=== PATIENT | female | born 1980 | race Caucasian/White ===

== ENCOUNTER 2020-07-26 10:10 | Inpatient (IN) | payer BC ==
[~2020-07-26] VITALS: Ht 167.6 cm; Wt 74.4 kg
[2020-07-26 10:29] VITALS: BP 112/67
[2020-07-26 10:58] LABS: ABSOLUTE NEUTROPHILS 9.9 thou/uL (1.4-8.2); BASOPHILS 0.4 % (0.0-2.0); EOSINOPHILS 0.5 % (0.0-3.0); HEMATOCRIT 38.9 % (37.0-47.0); LYMPHOCYTES 13.1 % (24.0-44.0); MCH 30.1 pg (26.0-34.0); MCHC 33.5 g/dL (28.0-37.0); MONOCYTES 6.2 % (1.0-8.0); PLATELET COUNT 317 thou/uL (150-400); POLYS 79.8 % (36.0-66.0); RBC 4.32 mil/uL (4.20-5.00); RDW 13.1 % (10.5-14.5); WBC 12.4 thou/uL (4.0-11.0)
[2020-07-26 11:08] LABS: CALCIUM 9.3 mg/dL (8.5-10.1); CREATININE 0.7 mg/dL (0.6-1.0); POTASSIUM 3.6 mmol/L (3.5-5.1)
[2020-07-26 11:14] LABS: ALBUMIN 4.2 g/dL (3.4-5.0); TOTAL PROTEIN 8.1 g/dL (6.4-8.2)
[2020-07-26 11:30] LABS: URINE BILIRUBIN NEGATIVE (Negative); URINE BLOOD 1+ (Negative); URINE CLARITY CLEAR; URINE COLOR YELLOW; URINE GLUCOSE-RANDOM* NEGATIVE (Negative); URINE KETONES 1+ (Negative); URINE LEUKOCYTES-REFLEX NEGATIVE (Negative); URINE NITRITE-REFLEX NEGATIVE (Negative); URINE PROTEIN (DIPSTICK) NEGATIVE (Negative); URINE UROBILINOGEN 0.2 E.U./dl (0.2-1.0)
[2020-07-26 11:37] LABS: SQUAMOUS 4-10 Moderate /LPF (0-3)
[2020-07-26 11:38] LABS: BACTERIA-REFLEX 1-9 Few /HPF (None Seen); CASTS None Seen /LPF (None Seen); CRYSTALS None Seen /LPF (None Seen); URINE RBC 0-2 Rare /HPF (0-2); URINE WBC-REFLEX None Seen /HPF (0-5)
[2020-07-26 15:51] VITALS: BP 112/67
[2020-07-26 17:27] VITALS: BP 126/74
[2020-07-26 17:54] VITALS: BP 165/78
--- NOTE | 2020-07-26 18:26 | NUR ---
ASSUMED PT CARE UPON TRANSFER TO UNIT AT 1730. PT RESTING IN ROOM, ADMISSION COMPLETED. INSTRUCTED ON HOW TO CALL USING CALL LIGHT. LOW FALL RISK. REPORTS NO CURRENT MEDICATIONS OR ALLERGIES. ABDOMINAL PAIN RATED AT A 2, INSTRUCTED TO CALL WHEN NEEDING PAIN MEDICATION. PT IS NPO. CONTINENT OF BOWEL AND BLADDER, AMBULATORY TO THE BATHROOM WHEN NEEDED.
[2020-07-26 19:53] VITALS: BP 103/65
--- NOTE | 2020-07-27 02:18 | NUR ---
PT CARE ASSUMED WITH PT IN BED WATCHING TV.PT IS A/O X4.PT IS UP AD KELVIN AND EDUCATED TO CALL FOR HELP WHEN NEEDED.PT DENIED N/V/D.PT APPEARED TO BE IN NO ACUTE DISTRESS AND DIDNT NEED ANY MEDICATION FOR PAIN TILL THIS POINT.IV ACCESS ON LT AC SL.WILL CONTINUE TO MONITOR PER POC
[2020-07-27 04:48] VITALS: BP 107/66
[2020-07-27 08:14] VITALS: BP 87/52
[2020-07-27 08:55] VITALS: BP 98/58
[2020-07-27 20:00] VITALS: BP 102/60
--- NOTE | 2020-07-27 20:11 | NUR ---
PT A&OX4, VSS, DENIES PAIN. PATIENT TOLERATING DIET. PATIENT AD KELVIN AND STEADY ON HER FEET. AT BEDSIDE. IV LEFT FOREARM WITH ABX RUNNING. NO N/V TODAY. NO SIGNS OF DISTRESS. WILL CONTINUE TO MONITOR.
--- NOTE | 2020-07-28 02:43 | NUR ---
ASSUMED PT CARE AT SHIFT CHANGE. VSS. PT IS UP AD KELVIN AND A &OX4. PT IV WAS INFILTRATED AND PT REQUESTED TO NOT HAVE A NEW IV PLACED. PT DENIES N/V/D. PT ALSO DENIES PAIN. PT STATES THAT SHE NEEDS SOMETHING FOR SLEEP. CALLED [facility] THREE TIMES BEFORE A CALL WAS RETURNED BY DANNY HADLEY. ONE TIME ORDER PUT IN FOR ATIVAN AND TYLENOL. PT REQUESTED TO NOT BE BOTHERED THROUGHOUT THE NIGHT. WILL CONTINUE TO MONITOR.
[2020-07-28 07:13] VITALS: BP 97/59
--- NOTE | 2020-07-28 10:58 | NUR ---
Received awake on bed. On room air. Vital signs stable. On MS, not on telemtry; no complains and signs of chest pain, crushing sensation and heaviness. On regular diet- tolerating well; no nausea, no vomiting and no abdominal pain noted. Able to have a bowel movement today- charted. Continent of bowel and bladder, able to go to the toilet independently; up ad jmaes; A+Ox4. No IV access noted- pt refusing to have it reinserted; possible discharge today- informed pt that no discharge orders has been made yet; a/w for Dr Tadeo's rounds. No complains of pain made during assessment. To continue monitoring patient.
[2020-07-28] MEDS ORDERED: METRONIDAZOLE500 M4 PO (13:15)
[2020-07-28] MEDS ORDERED: CIPRO500 MG PO (13:15)
[2020-07-28 13:27] VITALS: BP 97/59
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
== END 2020-07-28 16:49 | disposition home or self-care (01) | DRG 392 ==
LOC: ER 10:10 → EROBS 13:06 → 4W 13:06
PROVIDERS: Emergency Medicine; Physician Assistant; ADMIT Surgery; ATTEND Surgery
DX: K57.20 Diverticulitis of large intestine with perforation and abscess without bleeding (principal); Z20.822 Contact with and (suspected) exposure to COVID-19; Z79.899 Other long term (current) drug therapy
CPT/HCPCS: 10040

== ENCOUNTER → 2020-12-01 | Outpatient (CLI) | payer BC ==
[~2020-12-01] MED LIST: CIPRO500 MG PO; METRONIDAZOLE500 M4 PO; SPIRONOLACTONE50 MG PO
== END | disposition home or self-care (01) ==
LOC: GI 06:45
PROVIDERS: ATTEND Internal Medicine Gastroenterology
DX: R10.9 Unspecified abdominal pain (principal)